=== PATIENT | female | born 1995 | race Caucasian/White ===

== ENCOUNTER 2018-12-25 20:06 | Emergency (ER) | payer SELFPAY ==
--- NOTE | 2018-12-25 20:53 | ER Document Report ---
ED General - General Chief Complaint: Pain With Urination Stated Complaint: BURNING WHEN URINATING Time Seen by Provider: 12/25/18 20:48 Mode of Arrival: Ambulatory Information source: Patient Notes: 23-year-old female presents emergency department with complaints of a burning sensation when she urinates that started yesterday. She is having increased urgency and frequency. Patient states that she has had urinary tract infections in the past and believes that she has a urinary tract infection. She denies any diarrhea, constipation, vaginal bleeding or discharge. She states her last m enstrual period was 11/27/2018. Patient denies any medical problems. The only medication she is on is an oral contraceptive. TRAVEL OUTSIDE OF THE [place] IN LAST 30 DAYS: No - HPI Onset: Yesterday Onset/Duration: Persistent Quality of pain: Burning Severity: Mild Associated symptoms: None Exacerbated by: Denies Relieved by: Denies Similar symptoms previously: Yes Recently seen / treated by doctor: No - Related Data Allergies/Adverse Reactions: cefaclor [From Ceclor] Allergy (Unknown, Verified 12/25/18 20:50) Past Medical History - General Information source: Patient - Social History Smoking Status: Never Smoker Frequency of alcohol use: None Drug Abuse: None Family History: Reviewed & Not Pertinent Patient has suicidal ideation: No Patient has homicidal ideation: No Renal/ Medical History: Denies: Hx Peritoneal Dialysis Psychiatric Medical History: Reports: Hx Attention Deficit Hyperactivity Disorder Past Surgical History: Reports: Hx Oral Surgery - wisdom teeth - Immunizations Hx Diphtheria, Pertussis, Tetanus Vaccination: Yes Review of Systems - Review of Systems Constitutional: No symptoms reported EENT: No symptoms reported Cardiovascular: No symptoms reported Respiratory: No symptoms reported Gastrointestinal: No symptoms reported Genitourinary: Burning, Dysuria, Frequency, Urgency Musculoskeletal: No symptoms reported Skin: No symptoms reported Hematologic/Lymphatic: No symptoms reported Neurological/Psychological: No symptoms reported -: Yes All other systems reviewed and negative Physical Exam - Vital signs Vitals: Temp Pulse Resp BP Pulse Ox 99.0 F 56 L 16 119/64 100 12/25/18 20:38 12/25/18 20:38 12/25/18 20:38 12/25/18 20:38 12/25/18 20:38 - Notes Notes: PHYSICAL EXAMINATION: GENERAL: Well-appearing, well-nourished and in no acute distress. HEAD: Atraumatic, normocephalic. EYES: Pupils equal round and reactive to light, extraocular movements intact, conjunctiva are normal. ENT: Nares patent, oropharynx clear without exudates. Moist mucous membranes. NECK: Normal range of motion, supple without lymphadenopathy LUNGS: Breath sounds clear to auscultation bilaterally and equal. No wheezes rales or rhonchi. HEART: Regular rate and rhythm without murmurs ABDOMEN: Soft, nontender, nondistended abdomen. No guarding, no rebound. No masses appreciated. Female : deferred Musculoskeletal: Normal range of motion, no pitting or edema. No cyanosis. NEUROLOGICAL: Cranial nerves grossly intact. Normal speech, normal gait. Normal sensory, motor exams PSYCH: Normal mood, normal affect. SKIN: Warm, Dry, normal turgor, no rashes or lesions noted. Course - Re-evaluation Re-evalutation: 12/25/18 21:37 Urine is negative. Urinalysis shows signs of infection. Patient's vitals are stable. She denies any CVA pain. I will discharge her home on an antibiotic. Patient instructed to take the medication prescribed as directed, to follow-up with her primary care physician this week, and to return to the emergency department if she begins having any worsening symptoms. The patient is agreeable with plan of care. - Vital Signs Vital signs: Temp Pulse Resp BP Pulse Ox 99.0 F 56 L 16 119/64 100 12/25/18 20:38 12/25/18 20:38 12/25/18 20:38 12/25/18 20:38 12/25/18 20:38 - Laboratory Laboratory results interpreted by me: 12/25/18 21:00 Urine Protein 30 H Urine Blood MODERATE H Urine Urobilinogen 2.0 H Ur Leukocyte Esterase LARGE H Discharge - Discharge Clinical Impression: Urinary tract infection Qualifiers: Urinary tract infection type: acute cystitis Hematuria presence: without hematuria Qualified Code(s): N30.00 - Acute cystitis without hematuria Condition: Good Disposition: HOME, SELF-CARE Instructions: Trimethoprim-Sulfa ([facility]), Urinary Tract Infection ([facility]) Prescriptions: Sulfamethoxazole/Trimethoprim [Bactrim Ds Tablet] 1 each PO BID 5 Days #10 tablet Referrals: LUCERO TANG MD [ACTIVE STAFF] - Follow up as needed
[2018-12-25 21:25] LABS: APPEARANCE,URINE CLOUDY; BILIRUBIN,URINE NEGATIVE (NEGATIVE); COLOR,URINE YELLOW; GLUCOSE, URINE NEGATIVE (NEGATIVE); KETONES,URINE NEGATIVE (NEGATIVE); LEUKOCYTE ESTERASE,URINE LARGE (NEGATIVE); NITRITE,URINE NEGATIVE (NEGATIVE); PROTEIN,URINE 30 mg/dL (NEGATIVE); URINE SPECIFIC GRAVITY 1.025
[2018-12-25] MEDS ORDERED: SULFAMETHOXAZOLE/TRIMETHOPRIM 800-160 MG TABLET PO ONE (21:39)
[2018-12-25 21:56] VITALS: BP 121/82
== END 2018-12-25 21:56 | disposition home or self-care (01) ==
LOC: ER 20:06
DX: N30.00 Acute cystitis without hematuria (principal)
CPT/HCPCS: 81001; 81025; 99283

== ENCOUNTER 2019-03-20 14:40 | Emergency (ER) | payer SELFPAY ==
--- NOTE | 2019-03-20 15:40 | ER Document Report ---
HPI - HPI Patient complains to provider of: pain with void Time Seen by Provider: 03/20/19 15:22 Onset: Other - 4-5 days Quality of pain: Burning Pain Level: 1 Context: Patient presents with reports of pain when she voids for the past 4 to 5 days. Reports history of UTIs. Denies fever vomiting diarrhea abdominal pain. Denies vaginal discharge. Associated Symptoms: None Exacerbated by: Other - Voiding Relieved by: Denies Similar symptoms previously: Yes Recently seen / treated by doctor: No - REPRODUCTIVE LMP: 03/05/19 Reproductive: DENIES: : Past Medical History - General Information source: Patient Last Menstrual Period: 2 to 3 weeks ago - Social History Smoking Status: Current Some Day Smoker Frequency of alcohol use: Rare Drug Abuse: Marijuana Occupation: [employer] Family History: Reviewed & Not Pertinent Patient has suicidal ideation: No Patient has homicidal ideation: No - Medical History Medical History: Negative Renal/ Medical History: Denies: Hx Peritoneal Dialysis Psychiatric Medical History: Reports: Hx Attention Deficit Hyperactivity Disorder Past Surgical History: Reports: Hx Oral Surgery - wisdom teeth - Immunizations Hx Diphtheria, Pertussis, Tetanus Vaccination: Yes Vertical Provider Document - CONSTITUTIONAL Agree With Documented VS: Yes Exam Limitations: No Limitations General Appearance: WD/WN, No Apparent Distress - Nontoxic looking - INFECTION CONTROL TRAVEL OUTSIDE OF THE [place] IN LAST 30 DAYS: No - HEENT HEENT: Atraumatic, Normocephalic - NECK Neck: Normal Inspection, Supple. negative: Lymphadenopathy-Left, Lymphadenopathy-Right - RESPIRATORY Respiratory: Breath Sounds Normal, No Respiratory Distress - CARDIOVASCULAR Cardiovascular: Regular Rate, Regular Rhythm - GI/ABDOMEN Gastrointestinal: Abdomen Soft, Abdomen Non-Tender - BACK Back: Normal Inspection. negative: CVA Tenderness-Right, CVA Tenderness-Left - MUSCULOSKELETAL/EXTREMETIES Musculoskeletal/Extremeties: NOHEMY GREENE - NEURO Level of Consciousness: Awake, Alert, Appropriate Motor/Sensory: No Motor Deficit - DERM Integumentary: Warm, Dry Course - Re-evaluation Re-evalutation: 03/20/19 15:38 Patient instructed on plan of care for UA. Verbalized understanding. 03/20/19 16:46 Trace leukocytes few WBCs. Patient will be treated for a UTI based on signs symptoms and history. Patient instructed on the importance of follow-up push fluids. She verbalized understanding. Dictation of this chart was performed using voice recognition software; therefore, there may be some unintended grammatical errors. - Vital Signs Vital signs: Temp Pulse Resp BP Pulse Ox 98.3 F 54 L 18 115/60 99 03/20/19 14:52 03/20/19 14:52 03/20/19 14:52 03/20/19 14:52 03/20/19 14:52 Discharge - Discharge Clinical Impression: Dysuria, UTI (urinary tract infection) Condition: Stable Disposition: HOME, SELF-CARE Instructions: Nitrofurantoin ([facility]), Urinary Tract Infection ([facility]) Additional Instructions: *You have been evaluated for pain while voiding, UTI Urine culture is pending. You will be contacted should you need to have your antibiotics changed *Take medication as prescribed *Push fluids *Follow up with your primary care provider for recheck within one week *Plan urine recheck in one week *Return to ED for worsening condition, changes, needs Prescriptions: Nitrofurantoin/Nitrofuran Mac [Macrobid 100 mg Capsule] 100 mg PO BID #20 capsule Referrals: GRAZYNA KHOURY FNP [Primary Care Provider] - Follow up in 3-5 days
[2019-03-20 16:14] LABS: APPEARANCE,URINE SLIGHTLY-CLOUDY; BILIRUBIN,URINE NEGATIVE (NEGATIVE); COLOR,URINE YELLOW; GLUCOSE, URINE NEGATIVE (NEGATIVE); KETONES,URINE NEGATIVE (NEGATIVE); LEUKOCYTE ESTERASE,URINE TRACE (NEGATIVE); NITRITE,URINE NEGATIVE (NEGATIVE); PROTEIN,URINE NEGATIVE (NEGATIVE); URINE SPECIFIC GRAVITY 1.016; UROBILINOGEN,URINE NEGATIVE mg/dL (<2.0)
[2019-03-20 16:59] VITALS: BP 107/71
== END 2019-03-20 17:00 | disposition home or self-care (01) ==
LOC: ER 14:40
DX: N39.0 Urinary tract infection, site not specified (principal); F17.200 Nicotine dependence, unspecified, uncomplicated; F12.10 Cannabis abuse, uncomplicated
CPT/HCPCS: 81001; 81025; 87086; 99283

== ENCOUNTER → 2019-12-23 | Outpatient (CLI) | payer MEDICAID ==
--- NOTE | 2019-12-23 13:24 | RADIOLOGY REPORT (SQ) ---
EXAM DESCRIPTION: CT HEAD WITHOUT COMPLETED DATE/TIME: 12/23/2019 12:25 pm REASON FOR STUDY: G43.809 OTHER MIGRAINE, NOT INTRACTABLE, WITHOUT STATUS MIGRAINOSUS G43.809 OTHER MIGRAINE, NOT INTRACTABLE, WITHOUT STATUS MIGR COMPARISON: None. TECHNIQUE: Axial images acquired through the brain without intravenous contrast. Images reviewed wi th bone, brain and subdural windows. Additional sagittal and coronal reconstructions were generated. Images stored on PACS. All CT scanners at this facility use dose modulation, iterative reconstruction, and/or weight based d osing when appropriate to reduce radiation dose to as low as reasonably achievable (ALARA). [facility]: Dose Right [facility]: CareDose [facility]: Dose Right [facility]: Teradose 4D [facility]: Vistaar RADIATION DOSE: CT Rad equipment meets quality standard of care and radiation dose reduction techniq ues were employed. CTDIvol: 48.6 mGy. DLP: 905 mGy-cm. mGy. LIMITATIONS: None. FINDINGS: VENTRICLES: Normal size and contour. CEREBRUM: No masses. No hemorrhage. No midline shift. No evidence for acute infarction. Normal gra y/white matter differentiation. No areas of low density in the white matter. CEREBELLUM: No masses. No hemorrhage. No alteration of density. No evidence for acute infarction. EXTRAAXIAL SPACES: No fluid collections. No masses. ORBITS AND GLOBE: No intra- or extraconal masses. Normal contour of globe without masses. CALVARIUM: No fracture. PARANASAL SINUSES: Mucosal thickening left maxillary sinus. SOFT TISSUES: No mass or hematoma. OTHER: No other significant finding. IMPRESSION: NORMAL BRAIN CT WITHOUT CONTRAST. EVIDENCE OF ACUTE STROKE: NO. COMMENT: Quality ID # [id number]: Final reports with documentation of one or more dose reduction techniques (e.g., Automated exposure control, adjustment of the mA and/or kV according to patient size, use of iterative reconstruction technique) TECHNICAL DOCUMENTATION: JOB ID: [id number] 2010 [employer]- All Rights Reserved Reading location - IP/workstation name: [email or web address]
== END ==
LOC: RAD 11:43
PROVIDERS: ATTEND Obstetrics & Gynecology
DX: G43.809 Other migraine, not intractable, without status migrainosus (principal)
CPT/HCPCS: 70450

== ENCOUNTER 2020-02-08 15:10 | Inpatient (IN) | payer MEDICAID ==
[2020-02-08 15:57] LABS: ABSOLUTE BASOPHILS # (AUTO) 0.1 10^3/uL (0.0-0.2); ABSOLUTE EOSINOPHILS # (AUTO) 0.3 10^3/uL (0.0-0.6); ABSOLUTE LYMPHOCYTES (AUTO) 2.9 10^3/uL (0.5-4.7); ABSOLUTE MONOCYTES (AUTO) 1.1 10^3/uL (0.1-1.4); ABSOLUTE NEUT (AUTO) 10.4 10^3/uL (1.7-8.2); BASOPHILS % (AUTO) 0.5 % (0-2); EOSINOPHILS % (AUTO) 2.2 % (0-6); HEMATOCRIT 37.4 % (36.0-47.0); HEMOGLOBIN 12.9 g/dL (12.0-15.5); LYMPHOCYTES % (AUTO) 19.6 % (13-45); MEAN CORPUSCULAR HEMOGLOBIN 28.7 pg (27.0-33.4); MEAN CORPUSCULAR HGB CONC 34.4 g/dL (32.0-36.0); MEAN CORPUSCULAR VOLUME 84 fl (80-97); MONOCYTES % (AUTO) 7.6 % (3-13); PLATELET COUNT 303 10^3/uL (150-450); RED BLOOD COUNT 4.47 10^6/uL (3.72-5.28); RED CELL DISTRIBUTION WIDTH 13.5 % (11.5-14.0); SEGMENTED NEUTROPHILS % (AUTO) 70.1 % (42-78); TOTAL CELLS COUNTED % (AUTO) 100 %; WHITE BLOOD COUNT 14.8 10^3/uL (4.0-10.5)
[2020-02-08 16:23] LABS: ALBUMIN 3.6 g/dL (3.5-5.0); ALKALINE PHOSPHATASE 198 U/L (38-126); ANION GAP 8 (5-19); ASPARTATE AMINO TRANSFERASE 24 U/L (14-36); BILIRUBIN,DIRECT 0.2 mg/dL (0.0-0.4); BILIRUBIN,TOTAL 0.5 mg/dL (0.2-1.3); BLOOD UREA NITROGEN 16 mg/dL (7-20); CALCIUM 9.7 mg/dL (8.4-10.2); CARBON DIOXIDE 20 mmol/L (22-30); CHLORIDE 107 mmol/L (98-107); GLUCOSE 99 mg/dL (75-110); POTASSIUM 4.3 mmol/L (3.6-5.0); TOTAL PROTEIN 6.6 g/dL (6.3-8.2); URIC ACID 4.6 mg/dL (2.5-6.2)
[2020-02-08 16:24] LABS: URINE PROTEIN 24.2 mg/dL (<12)
[2020-02-08 16:26] LABS: 24 HOUR URINE PROTEIN RESULT 620 mg/day (42-225)
[2020-02-08] MEDS ORDERED: RINGERS SOLUTION,LACTATED 1,000 ML IV PRN ×2 (16:35→16:45)
[2020-02-08] MEDS ORDERED: MAG HYDROX/AL HYDROX/SIMETH SUSP 30 ML UDCUP PO PRN (16:45)
[2020-02-08] MEDS ORDERED: DINOPROSTONE 10 MG VAGINAL INSERT.SR PV ONE (16:45)
[2020-02-08] MEDS ORDERED: RINGERS SOLUTION,LACTATED 300 ML IV ONE (16:45)
[2020-02-08] MEDS ORDERED: ACETAMINOPHEN 325 MG TABLET PO PRN (16:45)
[2020-02-08] MEDS ORDERED: ZOLPIDEM TARTRATE 5 MG TABLET PO PRN (16:45)
[2020-02-08] MEDS ORDERED: OXYTOCIN/NORMAL SALINE 20 UNIT/1,000 ML RTUINJ IV PRN (16:45)
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
[2020-02-08] MEDS ORDERED: MISOPROSTOL 0.1 MG TABLET PO ONE (17:44)
[2020-02-08] MEDS ORDERED: MISOPROSTOL 0.2 MG TABLET ONE ×2 (18:07→20:13)
[2020-02-08] MEDS ORDERED: OXYTOCIN 10 UNIT/ML VIAL ONE (20:13)
[2020-02-08] MEDS ORDERED: LIDOCAINE 1% INJ-PF (10 MG/ML) 30 ML SDV ONE (20:13)
[2020-02-08] MEDS ORDERED: OXYTOCIN/NORMAL SALINE 20 UNIT/1,000 ML RTUINJ ONE (20:13)
[2020-02-08] MEDS ORDERED: NA PHOS,M-B/NA PHOS,DI-BA (ADULT) 133 ML ENEMA PR ONE (21:30)
[2020-02-08 22:50] LABS: URINE AMPHETAMINES SCREEN NEGATIVE; URINE BENZODIAZEPINES SCREEN NEGATIVE; URINE COCAINE SCREEN NEGATIVE; URINE MARIJUANA (THC) SCREEN NEGATIVE; URINE METHADONE SCREEN NEGATIVE; URINE PHENCYCLIDINE SCREEN NEGATIVE
[2020-02-08 23:04] LABS: URINE BARBITURATES SCREEN UNCONFIRMED POSITIVE
[2020-02-08] MEDS ORDERED: ONDANSETRON HCL INJ/PF 4 MG/2 ML SDV IV ONE (23:40)
[2020-02-08] MEDS ORDERED: HYDROMORPHONE HCL INJ/PF 2 MG/ML AMPULE ONE (23:41)
[2020-02-08] MEDS ORDERED: ONDANSETRON HCL INJ/PF 4 MG/2 ML SDV ONE (23:42)
[2020-02-08] MEDS ORDERED: HYDROMORPHONE HCL INJ/PF 2 MG/ML AMPULE IV ONE (23:59)
[2020-02-09] MEDS ORDERED: HYDROMORPHONE HCL INJ/PF 2 MG/ML AMPULE IV ONE (01:52)
[2020-02-09] MEDS ORDERED: HYDROMORPHONE HCL INJ/PF 2 MG/ML AMPULE ONE (01:54)
[2020-02-09] MEDS ORDERED: MAG HYDROX/AL HYDROX/SIMETH SUSP 30 ML UDCUP ONE (01:55)
[2020-02-09] MEDS ORDERED: MAG HYDROX/AL HYDROX/SIMETH SUSP 30 ML UDCUP PO ONE (01:55)
[2020-02-09] MEDS ORDERED: PROMETHAZINE HCL 25 MG SUPP.RECT PR PRN (05:05)
[2020-02-09] MEDS ORDERED: MEASLES,MUMPS&RUBELLA VACC/PF 0.5 ML VIAL SUBCUT PRN (05:05)
[2020-02-09] MEDS ORDERED: MAGNESIUM HYDROXIDE SUSP 30 ML UDCUP PO PRN (05:05)
[2020-02-09] MEDS ORDERED: ACETAMINOPHEN 325 MG TABLET PO PRN (05:05)
[2020-02-09] MEDS ORDERED: OXYTOCIN/NORMAL SALINE 20 UNIT/1,000 ML RTUINJ IV PRN (05:05)
[2020-02-09] MEDS ORDERED: DIPH/PERTUSS(ACELL)/TETANUS VAC/PF 0.5 ML SYR (>=10YO) IM PRN (05:05)
[2020-02-09] MEDS ORDERED: DIBUCAINE 1% OINTMENT 28 GM TP PRN (05:05)
[2020-02-09] MEDS ORDERED: BENZOCAINE/MENTHOL AEROSOL SPRAY 56 ML TOP PRN (05:05)
[2020-02-09] MEDS ORDERED: PSEUDOEPHEDRINE HCL 30 MG TABLET PO PRN (05:05)
[2020-02-09] MEDS ORDERED: DIPHENHYDRAMINE HCL 25 MG CAPSULE PO PRN (05:05)
[2020-02-09] MEDS ORDERED: PROMETHAZINE HCL 25 MG TABLET PO PRN (05:05)
[2020-02-09] MEDS ORDERED: NA PHOS,M-B/NA PHOS,DI-BA (ADULT) 133 ML ENEMA PR PRN (05:05)
[2020-02-09] MEDS ORDERED: PROMETHAZINE HCL INJ 25 MG/1 ML VIAL IV PRN (05:05)
[2020-02-09] MEDS ORDERED: GLYCERIN/WITCH HAZEL LEAF 1 EACH MED..WIPE TP PRN (05:05)
[2020-02-09] MEDS ORDERED: ZOLPIDEM TARTRATE 5 MG TABLET PO PRN (05:05)
[2020-02-09] MEDS ORDERED: LIDOCAINE 1% INJ-PF (10 MG/ML) 30 ML SDV ONE (05:55)
[2020-02-09] MEDS ORDERED: FENTANYL CITRATE INJ/PF 100 MCG/2 ML AMPUL ONE (06:00)
[2020-02-09] MEDS ORDERED: MISOPROSTOL 0.1 MG TABLET PR ONE (06:38)
[2020-02-09] MEDS ORDERED: IBUPROFEN 800 MG TABLET ONE (07:56)
[2020-02-09] MEDS ORDERED: BENZOCAINE/MENTHOL AEROSOL SPRAY 56 ML ONE (07:57)
[2020-02-09] MEDS: IBUPROFEN 800 MG TABLET PO SCH ×3 (08:06→21:11)
[2020-02-09] MEDS ORDERED: ACETAMINOPHEN WITH CODEINE #3 TABLET ONE (08:36)
[2020-02-09] MEDS: ACETAMINOPHEN WITH CODEINE #3 TABLET PO PRN ×2 (08:50→17:37)
--- NOTE | 2020-02-09 10:04 | Delivery Summary ---
Del Sum A-C Datetime Report Generated by CPN: 02/09/2020 10:04 DELIVERY PERSONNEL DELIVERY PERSONNEL: [id number] Delivery Doctor:: Brenna Alexander MD Labor and Delivery Nurse:: Caitlin Farrell RNliability analyst Nurse:: Yazmin Luu RN Continuous Improvement Coach/PULP GRINDER: Leigh Rodrigues, ST MATERNAL INFORMATION Delivery Anesthesia: Pudendal Medications After Delivery: Pitocin Bolus-Please Comment; Cytotec 1000mcg Per Rectum/Vagina Meds After Delivery Comment: Pitocin 20 units/1000 ml NSS Estimated Blood Loss (ml): 200 Delivery QBL: 200 Maternal Complications: None Provider Comments: Patient was noted to c/c/+1. Reviewed pudendal block and patient desired pudendal block. Pudendal block performed in the usual fashion. VMI delivered in ASAD presentation. No nuchal cord but compound cord and left hand. Shoulders and body delivered without difficulty. to maternal abdomen for NRP. Delayed cord clamping then cord doubly clamped and cut. Placenta delivered intact spontaneously. FF at U +1 and continued bleeding - manual sweep of uterus performed with large clot evacuated then uterine tone improved. Cytotec 1000mcg per rectum given. 2nd degree perineal laceration repaired with good hemostasis. Mother and baby stable upon provider leaving the room LABOR SUMMARY EDC: 02/10/2020 00:00 No. Babies in Womb: 1 Attempted: No Labor Anesthesia: IV Sedation LABOR INFORMATION Reason for Induction: Pre-Eclampsia; Maternal Diabetes; Other Reason for Induction- Other: A2GDM and PreE Onset of Labor: 02/09/2020 01:20 Complete Dilatation: 02/09/2020 05:35 Cervical Ripening Agents: Cytotec @ Oxytocin: Induction Group B Beta Strep: neg Antibiotics # of Doses: n/a Steroids Given: None Reason Steroids Not Administered: Not Applicable MEMBRANES Membranes Rupture Method: Spontaneous Rupture of Membranes: 02/08/2020 20:47 Length of Rupture (hr): 9.12 Amniotic Fluid Color: Clear Amniotic Fluid Amount: Small Amniotic Fluid Odor: Normal STAGES OF LABOR Stage 1 hr: 4 Stage 1 min: 15 Stage 2 hr: 0 Stage 2 min: 19 Stage 3 hr: 0 Stage 3 min: 10 Total Time in Labor hr: 4 Total Time in Labor min: 44 VAGINAL DELIVERY Episiotomy: None Laceration #1: Perineal Laceration Extension #1: Second Degree Laceration Repair: Yes Laceration Repair Note: 2nd degree perineal laceration repaired in usual fashion Sponge Count Correct: Yes Sharps Count Correct: Yes CSECTION DELIVERY Primary Indication: N/A Secondary Indication: N/A CSection Incidence: N/A Labor: N/A Elective: N/A CSection Incision: N/A BABY A INFORMATION Delivery Date/Time: 02/09/2020 05:54 Method of Delivery: Vaginal Nurse Controlled Delivery: No Born in Route : No : N/A Forceps: N/A Vacuum Extraction: N/A Shoulder Dystocia : No PRESENTATION/POSITION BABY A Presentation: Cephalic Cephalic Presentation: Vertex Vertex Position: Left Occipital Anterior Breech Presentation: N/A PLACENTA INFORMATION BABY A Placenta Delivery Time : 02/09/2020 06:04 Placenta Method of Delivery: Spontaneous Placenta Status: Delivered SCORES BABY A Heart Rate 1 min: >100 bpm Resp Effort 1 min: Good Cry Reflex Irritability 1 min: Cough or Sneeze or Pulls Away Muscle Tone 1 min: Active Motion Color 1 min: Blue/Pale Resuscitation Effort 1 min: Tactile Stimulation SCORE 1 MIN: 8 Heart Rate 5 min: >100 bpm Resp Effort 5 min: Good Cry Reflex Irritability 5 min: Cough or Sneeze or Pulls Away Muscle Tone 5 min: Active Motion Color 5 min: Body Haven, Extremities Blue Resuscitation Effort 5 min: Tactile Stimulation SCORE 5 MIN: 9 INFORMATION BABY A Gestational Age at Delivery: 39.6 Gestational Status: Full Term- 39- 40.6 Weeks Infant Outcome : Liveborn Infant Condition : Stable Sex: Male IDENTIFICATION BABY A Verification Date/Time: 02/09/2020 06:03 ID Band Number: [id number] Mother's Name Verified: Yes RN Verifying Infant: J.Field, RN and E.Tusharlek, RN WEIGHT/LENGTH BABY A Birthweight (gm): 3540 Weight (lb): 7 Infant Weight (oz): 13 Length (in): 20.25 Infant Length (cm): 51.44 CORD INFORMATION BABY A No. Cord Vessels: 3 Nuchal Cord : N/A Cord Blood Taken: Yes-For Eval (Mom's Blood Type - or O+) Suction: None ASSESSMENT BABY A Infant Complications: None Physical Findings at Delivery: Within Normal Limits Respirations: Appears Normal Skin to Skin: Yes Motor Scooter Mechanic/ALS Called : No Infant Care By: Sharon Luu RN Transferred To: Remains with Mother BABY B INFORMATION : N/A SIGNATURES Signature: with User ID: [email or web address]
[2020-02-09] MEDS: MISOPROSTOL 0.1 MG TABLET PV SCH ×2 (10:21→10:22)
[2020-02-09] MEDS: FAMOTIDINE 20 MG TABLET PO SCH ×2 (10:46→21:12)
[2020-02-09] MEDS: DOCUSATE SODIUM 100 MG CAPSULE PO SCH ×2 (10:46→17:35)
[2020-02-09] MEDS: PRENATAL VITAMIN W DHA CAPSULE PO SCH (10:46)
[2020-02-09] MEDS: SENNOSIDES/DOCUSATE 8.6-50 MG 1 EACH TABLET PO SCH (10:46)
[2020-02-09] MEDS: FERROUS SULFATE 325 MG TABLET PO SCH ×2 (10:46→17:35)
[2020-02-10] MEDS: IBUPROFEN 800 MG TABLET PO SCH ×3 (05:28→22:28)
[2020-02-10 06:31] LABS: HEMATOCRIT 35.5 % (36.0-47.0); HEMOGLOBIN 12.2 g/dL (12.0-15.5); MEAN CORPUSCULAR HEMOGLOBIN 29.2 pg (27.0-33.4); MEAN CORPUSCULAR HGB CONC 34.5 g/dL (32.0-36.0); MEAN CORPUSCULAR VOLUME 85 fl (80-97); PLATELET COUNT 266 10^3/uL (150-450); RED BLOOD COUNT 4.19 10^6/uL (3.72-5.28); RED CELL DISTRIBUTION WIDTH 13.8 % (11.5-14.0)
--- NOTE | 2020-02-10 09:43 | PDOC PROGRESS REPORT ---
Subjective-OB Progress Note for:: 02/10/20 Subjective: pain controlled with current meds, bleeding slowing. denies needs Physical Exam (OB) Vital Signs: Temp Pulse Resp BP Pulse Ox 98.1 F 87 16 101/56 L 100 02/09/20 20:30 02/09/20 20:30 02/09/20 20:30 02/09/20 20:30 02/09/20 20:30 Intake & Output 02/09/20 02/10/20 02/11/20 06:59 06:59 06:59 Intake Total 1300 Balance 1300 Weight 111.3 kg - Abdomen Description: Soft, Round Hernia Present: No Fundal Description: Firm, Midline Fundal Height: u/u - u/2 - Abdominal Distension: No distension Tenderness: Nontender Objective-Diagnostic Laboratory: 02/10/20 06:10 02/08/20 15:46 02/10/20 06:10 WBC 18.0 H RBC 4.19 Hgb 12.2 Hct 35.5 L MCV 85 MCH 29.2 MCHC 34.5 RDW 13.8 Plt Count 266 Assessment and Plan(PN) - Time Spent with Patient Time with patient: Less than 15 minutes Medications reviewed and adjusted accordingly: Yes - Disposition Anticipated Discharge: Home Within: within 24 hours - discussed inc WBC with Dr Alexander. pt allergic to cefaclor, advised to order clindamycin 900mg q6h, repeat CBC in AM
[2020-02-10] MEDS ORDERED: CLINDAMYCIN PHOSPHATE 900 MG in DEXTROSE 5%-WATER 100 ML IV SCH (10:00)
[2020-02-10] MEDS: SENNOSIDES/DOCUSATE 8.6-50 MG 1 EACH TABLET PO SCH (10:30)
[2020-02-10] MEDS: FERROUS SULFATE 325 MG TABLET PO SCH ×2 (10:30→18:20)
[2020-02-10] MEDS: PRENATAL VITAMIN W DHA CAPSULE PO SCH (10:30)
[2020-02-10] MEDS: DOCUSATE SODIUM 100 MG CAPSULE PO SCH ×2 (10:30→18:20)
[2020-02-10] MEDS: FAMOTIDINE 20 MG TABLET PO SCH ×2 (10:30→22:27)
[2020-02-10] MEDS: ACETAMINOPHEN WITH CODEINE #3 TABLET PO PRN (10:31)
[2020-02-10] MEDS: CLINDAMYCIN 900 MG/D5W RTU 900 MG/50 ML RTUPB IV SCH (13:00)
[2020-02-11] MEDS: CLINDAMYCIN 900 MG/D5W RTU 900 MG/50 ML RTUPB IV SCH ×5 (00:57→11:09)
[2020-02-11] MEDS: ACETAMINOPHEN WITH CODEINE #3 TABLET PO PRN ×2 (02:50→12:32)
[2020-02-11] MEDS: IBUPROFEN 800 MG TABLET PO SCH (05:19)
[2020-02-11 07:19] LABS: ABSOLUTE BASOPHILS # (AUTO) 0.1 10^3/uL (0.0-0.2); ABSOLUTE EOSINOPHILS # (AUTO) 0.2 10^3/uL (0.0-0.6); ABSOLUTE LYMPHOCYTES (AUTO) 4.2 10^3/uL (0.5-4.7); ABSOLUTE MONOCYTES (AUTO) 1.2 10^3/uL (0.1-1.4); ABSOLUTE NEUT (AUTO) 9.5 10^3/uL (1.7-8.2); BASOPHILS % (AUTO) 0.5 % (0-2); EOSINOPHILS % (AUTO) 1.3 % (0-6); HEMATOCRIT 33.9 % (36.0-47.0); HEMOGLOBIN 11.5 g/dL (12.0-15.5); LYMPHOCYTES % (AUTO) 27.5 % (13-45); MEAN CORPUSCULAR HEMOGLOBIN 28.9 pg (27.0-33.4); MEAN CORPUSCULAR VOLUME 85 fl (80-97); MONOCYTES % (AUTO) 8.1 % (3-13); PLATELET COUNT 275 10^3/uL (150-450); RED BLOOD COUNT 3.98 10^6/uL (3.72-5.28); RED CELL DISTRIBUTION WIDTH 13.8 % (11.5-14.0); SEGMENTED NEUTROPHILS % (AUTO) 62.6 % (42-78); TOTAL CELLS COUNTED % (AUTO) 100 %; WHITE BLOOD COUNT 15.2 10^3/uL (4.0-10.5)
[2020-02-11 08:32] VITALS: BP 115/58
[2020-02-11] MEDS: PRENATAL VITAMIN W DHA CAPSULE PO SCH (09:22)
[2020-02-11] MEDS: SENNOSIDES/DOCUSATE 8.6-50 MG 1 EACH TABLET PO SCH (09:22)
[2020-02-11] MEDS: DOCUSATE SODIUM 100 MG CAPSULE PO SCH (09:22)
[2020-02-11] MEDS: FERROUS SULFATE 325 MG TABLET PO SCH (09:22)
[2020-02-11] MEDS: FAMOTIDINE 20 MG TABLET PO SCH (09:22)
--- NOTE | 2020-02-11 10:59 | PDOC DISCHARGE SUMMARY ---
Impression - Admit/DC Date/PCP Admission Date/Primary Care Provider: 02/08/20 16:41 LIZETT SARAH MD Discharge Date: 02/11/20 - PP Day #2, doing well, denies headache, O+., rubella immune, . Hx GDM - Discharge Diagnosis (1) Gestational diabetes mellitus (GDM) controlled on oral hypoglycemic drug Is this a current diagnosis for this admission?: Yes (2) Laceration, obstetrical, second degree Is this a current diagnosis for this admission?: Yes (3) Pre-eclampsia Is this a current diagnosis for this admission?: Yes (4) Vaginal delivery Is this a current diagnosis for this admission?: Yes - Additional Information Resuscitation Status: Full Code Discharge Diet: As Tolerated, Regular Discharge Activity: Activity As Tolerated, No Lifting Over 10 Pounds, Pelvic Rest Referrals: LIZETT SARAH MD [Primary Care Provider] - Prescriptions: Ibuprofen [Motrin 800 mg Tablet] 800 mg PO Q8 #60 tablet Home Medications: 95/Iron Fum/Folic/Dha [ + Dha Combo Pack] 1 each PO DAILY 02/07/20 Ibuprofen [Motrin 800 mg Tablet] 800 mg PO Q8 #60 tablet 02/11/20 HPI Reason(s) for Admission: Induction of Labor Procedures: NST, Ultrasound Intrapartum Procedure(s): Spontaneous Vaginal Delivery Complication(s): Laceration-Vaginal Laceration-Degree: 2nd Results Laboratory Results: WBC 15.2 10^3/uL (4.0-10.5) H 02/11/20 06:53 RBC 3.98 10^6/uL (3.72-5.28) 02/11/20 06:53 Hgb 11.5 g/dL (12.0-15.5) L 02/11/20 06:53 Hct 33.9 % (36.0-47.0) L 02/11/20 06:53 MCV 85 fl (80-97) 02/11/20 06:53 MCH 28.9 pg (27.0-33.4) 02/11/20 06:53 MCHC 34.0 g/dL (32.0-36.0) 02/11/20 06:53 RDW 13.8 % (11.5-14.0) 02/11/20 06:53 Plt Count 275 10^3/uL (150-450) 02/11/20 06:53 Lymph % (Auto) 27.5 % (13-45) 02/11/20 06:53 Hardin % (Auto) 8.1 % (3-13) 02/11/20 06:53 Eos % (Auto) 1.3 % (0-6) 02/11/20 06:53 Baso % (Auto) 0.5 % (0-2) 02/11/20 06:53 Absolute Neuts (auto) 9.5 10^3/uL (1.7-8.2) H 02/11/20 06:53 Absolute Lymphs (auto) 4.2 10^3/uL (0.5-4.7) 02/11/20 06:53 Absolute Monos (auto) 1.2 10^3/uL (0.1-1.4) 02/11/20 06:53 Absolute Eos (auto) 0.2 10^3/uL (0.0-0.6) 02/11/20 06:53 Absolute Basos (auto) 0.1 10^3/uL (0.0-0.2) 02/11/20 06:53 Seg Neutrophils % 62.6 % (42-78) 02/11/20 06:53 Sodium 135.0 mmol/L (137-145) L 02/08/20 15:46 Potassium 4.3 mmol/L (3.6-5.0) 02/08/20 15:46 Chloride 107 mmol/L (98-107) 02/08/20 15:46 Carbon Dioxide 20 mmol/L (22-30) L 02/08/20 15:46 Anion Gap 8 (5-19) 02/08/20 15:46 BUN 16 mg/dL (7-20) 02/08/20 15:46 Creatinine 0.72 mg/dL (0.52-1.25) 02/08/20 15:46 Est GFR ( Amer) > 60 (>60) 02/08/20 15:46 Est GFR (MDRD) Non-Af > 60 (>60) 02/08/20 15:46 Glucose 99 mg/dL (75-110) 02/08/20 15:46 Uric Acid 4.6 mg/dL (2.5-6.2) 02/08/20 15:46 Calcium 9.7 mg/dL (8.4-10.2) 02/08/20 15:46 Total Bilirubin 0.5 mg/dL (0.2-1.3) 02/08/20 15:46 Direct Bilirubin 0.2 mg/dL (0.0-0.4) 02/08/20 15:46 Neonat Total Bilirubin Not Reportable 02/08/20 15:46 Neonat Direct Bilirubin Not Reportable 02/08/20 15:46 Neonat Indirect Bili Not Reportable 02/08/20 15:46 AST 24 U/L (14-36) 02/08/20 15:46 ALT 25 U/L (<35) 02/08/20 15:46 Alkaline Phosphatase 198 U/L (38-126) H 02/08/20 15:46 Lactate Dehydrogenase 176 U/L (120-246) 02/08/20 15:46 Total Protein 6.6 g/dL (6.3-8.2) 02/08/20 15:46 Albumin 3.6 g/dL (3.5-5.0) 02/08/20 15:46 Ur 24 Hour Volume 2560 mL 02/08/20 15:28 Ur Total Protein 24 Hr 620 mg/day (42-225) H 02/08/20 15:28 Urine Total Protein 24.2 mg/dL (<12) H 02/08/20 15:28 Urine Opiates Screen NEGATIVE 02/08/20 15:28 Urine Methadone Screen NEGATIVE 02/08/20 15:28 Ur Barbiturates Screen UNCONFIRMED POSITIVE 02/08/20 15:28 Ur Phencyclidine Scrn NEGATIVE 02/08/20 15:28 Ur Amphetamines Screen NEGATIVE 02/08/20 15:28 U Benzodiazepines Scrn NEGATIVE 02/08/20 15:28 Urine Cocaine Screen NEGATIVE 02/08/20 15:28 U Marijuana (THC) Screen NEGATIVE 02/08/20 15:28 RPR NONREACTIVE (NONREACTIVE) 02/08/20 17:14 Blood Type O POSITIVE 02/08/20 17:14 Antibody Screen NEGATIVE 02/08/20 17:14 Plan Plan of Treatment: d/c to home, f/u with [facility] in one week for BP check Time Spent: Less than 30 Minutes
== END 2020-02-11 14:00 | disposition home or self-care (01) | DRG 807 ==
LOC: LC 15:10 → LR 16:41 → 2S 02-09 10:00
PROVIDERS: ADMIT Student in an Organized Health Care Education/Training Program; ATTEND Student in an Organized Health Care Education/Training Program
PROC: 10E0XZZ Delivery of Products of Conception, External Approach (ICD-10-PCS; principal; 2020-02-09)
PROC: 0KQM0ZZ Repair Perineum Muscle, Open Approach (ICD-10-PCS; 2020-02-09)
DX: O14.94 Unspecified pre-eclampsia, complicating childbirth (principal); Z37.0 Single live birth; O24.425 Gestational diabetes mellitus in childbirth, controlled by oral hypoglycemic drugs; O69.2XX0 Labor and delivery complicated by other cord entanglement, with compression, not applicable or unspecified; O99.344 Other mental disorders complicating childbirth; F41.8 Other specified anxiety disorders; O70.1 Second degree perineal laceration during delivery; Z3A.39 39 weeks gestation of pregnancy
CPT/HCPCS: 36415; 59025; 80053; 80307; 80345; 83615; 84156; 84550; 85025; 85027; 86592; 86850; 86900; 86901; G0480; J1170; J2405; J2590; J3010; J3490